=== PATIENT | female | born 1985 | race American Indian/Alaskan Native ===

== ENCOUNTER 2018-02-21 01:19 | Inpatient (IN) | payer OTHER ==
[~2018-02-21] VITALS: Ht 157.5 cm; Wt 62.0 kg
--- OUTSIDE RECORDS SUMMARY | ~2018-02-21 | XMS ---
Demographics + + + | Address | [address] | | | [place] [address] | + + + | Preferred Language | Unknown | + + + | Marital Status | Unknown | + + + | Episcopal Affiliation | Unknown | + + + | Race | Unknown | + + + | Ethnic Group | Unknown | + + + Author + + + | Author | [facility] | + + + | Organization | [facility] | + + + | Address | [address] | | | [place] [address] | + + + | Phone | | + + + Care Team Providers + + + + | Care Motor Equipment Lieutenant Name | Role | Phone | + + + + Unavailable | Unavailable | + + + + PROBLEMS Unknown Problems ALLERGIES + + + + +---------+ | Substance | Reaction | Event Type | Date | Status | + + + + +---------+ | Jim | Unknown | Non Drug | Nov, | Unknown | | | | Allergy | | | + + + + +---------+ SOCIAL HISTORY No smoking Hx information available PLAN OF CARE + +---------+ | Activity | Details | + +---------+ +---+ | | +---+ + + + | Follow Up | prn Reason:null | + + + VITAL SIGNS + + + + | Height | 62.25 in | 2016-11-27 | + + + + | Weight | 100.9 lbs | 2016-11-27 | + + + + | BMI | 18.30 kg/m2 | 2016-11-27 | + + + + | Temperature | 98.5 degrees Fahrenheit | 2016-11-27 | + + + + | Heart Rate | 92 /min | 2016-11-27 | + + + + | Blood pressure systolic | 125 mm Hg | 2016-11-27 | + + + + | Blood pressure diastolic | 88 mm Hg | 2016-11-27 | + + + + MEDICATIONS + + + + + + + +--------+ | Medicati | Instruct | Dosage | Frequenc | Start | End Date | Duration | Status | | on | ions | | y | Date | | | | + + + + + + + +--------+ | Benadryl | | | | | | | Active | + + + + + + + +--------+ | Hydrocor | External | 1 | 12h | 12 Paulino, | 17 Paulino, | 5 days | Active | | tisone | ly Twice | applicat | | 2016 | 2016 | | | | 2.5 % | a day | ion to | | | | | | | | | affected | | | | | | | | | area | | | | | | + + + + + + + +--------+ | Doxepin | Orally | 1-2 | 24h | 12 Paulino, | | | Active | | HCl 25 | Once a | capsule | | 2016 | | | | | MG | day | at | | | | | | | | | bedtime | | | | | | | | | as | | | | | | | | | needed | | | | | | | | | for | | | | | | | | | itching | | | | | | + + + + + + + +--------+ RESULTS No Results PROCEDURES + + + + + | Procedure | Date Ordered | Related Diagnosis | Body Site | + + + + + | Est Level III | November 27, 2016 | | | | Intermediate | | | | + + + + + | INJ KETOROLAC | November 27, 2016 | | | | TROMETHAMINE 15 MG | | | | + + + + + | INJECTION | November 27, 2016 | | | | INTRAMUSCULAR OR | | | | | SUBCUTANEOUS | | | | + + + + + IMMUNIZATIONS + + + + + | Vaccine | Route | Administration Date | Status | + + + + + | Ketorolac 30mg | IM Intramuscular | November 27, 2016 | Administered | + + + + +"
--- OUTSIDE RECORDS SUMMARY | ~2018-02-21 | XMS | Clinical Summary ---
Demographics + + + | Address | [address] [place] [address] | | | [place] [address] | + + + | Home Phone | | + + + | Preferred Language | Unknown | + + + | Marital Status | Single | + + + | Yarsanism Affiliation | Unknown | + + + | Race | Unknown | + + + | Ethnic Group | Unknown | + + + Author + + + | Author | [facility] | | | and [place] | + + + | Organization | [facility] | | | and [place] | + + + | Address | Unknown | + + + | Phone | Unavailable | + + + Support + + + + + | Name | Relationship | Address | Phone | + + + + + | Katlyn Chris | ECON | [place] | | | | | [address] | | + + + + + Care Team Providers + +------+ + | Care Paperboard Box Maker Name | Role | Phone | + +------+ + | No, Physician | PP | Unavailable | + +------+ + Allergies No Known Allergies Current Medications + + +-------+---------+------+------+-------+ | Prescription | Sig. | Disp. | Refills | Star | End | Statu | | | | | | t | Date | s | | | | | | Date | | | + + +-------+---------+------+------+-------+ | 27-0.8 mg | Take 1 tablet by | | | | | Activ | | multivitamin tablet | mouth Daily. | | | | | e | + + +-------+---------+------+------+-------+ Active Problems Not on file Immunizations + + + + | Name | Dates Previously Given | Next Due | + + + + | INFLUENZA PF | 06/08/2016 | | | QUAD(PED/ADOL/ADULT) | | | | ,PSKT or VIAL | | | + + + + | TDAP, (ADOL/ADULT) | 06/08/2016 | | + + + + Social History + +-------+ +--------+ + | Tobacco Use | Types | Packs/Day | Years | Date | | | | | Used | | + +-------+ +--------+ + | Current Every Day | | | | Started: 07/08/1996 | | Smoker | | | | | + +-------+ +--------+ + + +---+---+---+ | Smokeless Tobacco: | | | | | Never Used | | | | + +---+---+---+ + + +---------+ + | Alcohol Use | Drinks/We | oz/Week | Comments | | | ek | | | + + +---------+ + | No | | | | + + +---------+ + + + + | Sex Assigned at | Date Recorded | | | | + + + | Not on file | | + + + Last Filed Vital Signs + + + + | Vital Sign | Reading | Time Taken | + + + + | Blood Pressure | 141/87 | 06/08/20161614 PST | + + + + | Pulse | 69 | 06/08/20161614 PST | + + + + | Temperature | 37 C (98.6 F) | 06/08/20161614 PST | + + + + | Respiratory Rate | 16 | 06/08/20161614 PST | + + + + | Oxygen Saturation | 96% | 06/08/2016399 PST | + + + + | Inhaled Oxygen | - | - | | Concentration | | | + + + + | Weight | 62.6 kg (138 lb) | 06/07/20161326 PST | + + + + | Height | 157.5 cm (5' 2") | 06/07/20161326 PST | + + + + | Body Mass Index | 25.24 | 06/07/20161326 PST | + + + + Plan of Treatment + + + + + | Health Maintenance | Due Date | Last Done | Comments | + + + + + | Cervical Cancer | | | | | Screening (Pap) | 3 | | | + + + + + | Vaccine: Influenza | | 06/08/2016 | | | (#1) | 8 | | | + + + + + | Vaccine: | | 06/08/2016 | | | Dtap/Tdap/Td (2 - | 6 | | | | Td) | | | | + + + + + Results Not on filefrom Last 3 Months Insurance + +--------+ +--------+ +---------+ | Payer | Benefi | Subscriber | Type | Phone | Address | | | t Plan | ID | | | | | | / | | | | | | | Group | | | | | + +--------+ +--------+ +---------+ | [employer] | [employer] | [id number] | Medica | [phone] | | MEDICAID HMO | HEALTH | | id | 9821 | | | | [place] | | | | | | | [place] | | | | | + +--------+ +--------+ +---------+ + +--------+ +--------+ + + | Guarantor Name | Accoun | Relation to | Date | Phone | Billing Address | | | t Type | Patient | of | | | | | | | | | | + +--------+ +--------+ + + | ELISEO NELSON | Person | Self [birth year] | Home: | [id number] | | [place] | [place] | | 1984 | [phone] [place] | | | stephanie | | | [phone] | + +--------+ +--------+ + +
[~2018-02-21 01:19] MED LIST: BACTRIM DS TAB1 EACH PO; BENTYL10 MG PO; ZOFRAN4 MG PO
== END 2018-02-22 13:29 | disposition home or self-care (01) | DRG 775 ==
LOC: FBCO 01:19 → FBC 01:57
PROVIDERS: ADMIT Obstetrics & Gynecology
PROC: 10E0XZZ Delivery of Products of Conception, External Approach (ICD-10-PCS; principal; 2018-02-21)
PROC: 10907ZC Drainage of Amniotic Fluid, Therapeutic from Products of Conception, Via Natural or Artificial Opening (ICD-10-PCS; 2018-02-21)
DX: O62.3 Precipitate labor (principal); O99.324 Drug use complicating childbirth; O76 Abnormality in fetal heart rate and rhythm complicating labor and delivery; F12.10 Cannabis abuse, uncomplicated; O99.334 Smoking (tobacco) complicating childbirth; F17.210 Nicotine dependence, cigarettes, uncomplicated; Z37.0 Single live birth; Z3A.37 37 weeks gestation of pregnancy
CPT/HCPCS: 85027; 99406; J2590; J7120

== ENCOUNTER 2023-03-05 21:00 | Emergency (ER) | payer OTHER ==
[~2023-03-05] VITALS: Ht 157.5 cm; Wt 45.8 kg
--- OUTSIDE RECORDS SUMMARY | 2023-03-05 21:09 | XMS ---
PreManage Notification: MAE NELSON Security Postpartum Nurse Events No recent Security Events currently on file CRITERIA MET - [facility] - 2 Visits in 30 Days CARE PROVIDERS [facility] or Welfare 12/19/2021-Current HEALTH PHONE: [phone] XANDER PALAFOX [employer] Supervisor Current [facility] PHONE: Unknown Devang has no Care Guidelines for this patient. EBee VISIT COUNT (12 MO.) Vesna Holt [place] [address] [place] [address] TOTAL 2 NOTE: Visits indicate total known visits. ED/UCC VISIT TRACKING (12 MO.) 03/05/2023 21:01 [facility] [place] TYPE: Emergency COMPLAINT: - LIGHTHEADED 03/04/2023 19:53 Vesna A[facility] TYPE: Emergency COMPLAINT: - Vaginal bleed_VAGINAL BLEED INPATIENT VISIT TRACKING (12 MO.) No inpatient visits to display in this time frame [email or web address]
[2023-03-05 21:32] LABS: BASOPHILS 0.6 % (0-2); EOSINOPHILS 0.5 % (0-6); HEMATOCRIT 37.7 % (35.0-50.0); HEMOGLOBIN 12.3 g/dL (12.0-18.0); LYMPHOCYTES 22.7 % (24-44); MCH 28.1 (27-36); MCHC 32.7 g/dl (30-36); MCV 86.1 fl (81-99); MONOCYTES 4.4 % (0-12); NEUTROPHILS 71.8 % (39-80); PLATELET COUNT 335 K/uL (140-440); RBC 4.38 M/ul (4.3-5.7)
[2023-03-05 21:47] LABS: ALBUMIN 3.7 g/dL (3.4-5.0); ALBUMIN/GLOBULIN RATIO 1.19 (1.1-2.4); ANION GAP 15.4 (7-21); BILIRUBIN, TOTAL 0.3 ng/dL (0.2-1.0); BUN/CREATININE RATIO 10.63 (6.0-28.6); CALCIUM 8.5 mg/dL (8.5-10.1); CREATININE, SERUM 0.94 mg/dL (0.55-1.02); POTASSIUM 3.4 mmol/L (3.5-5.1); PROTEIN, TOTAL 6.8 g/dL (6.4-8.2)
[2023-03-05 22:05] LABS: ABO O; ANTIBODY SCREEN NEGATIVE; RH POSITIVE
[2023-03-05 23:07] LABS: BILIRUBIN, URINE NEGATIVE (negative); BLOOD/HGB, URINE MODERATE (Negative); KETONE, URINE NEGATIVE (Negative); LEUK ESTERASE, URINE NEGATIVE (negative); NITRITE, URINE NEGATIVE (negative); PH, URINE 5.5 (5-7)
[2023-03-05 23:12] LABS: EPITHELIAL CELLS, URINE SQUAMOUS 1+ /lpf (0-1+)
[2023-03-05 23:13] LABS: BACTERIA, URINE RARE /hpf (negative); CASTS, URINE NONE SEEN \\lpf; CRYSTALS, URINE NONE SEEN (0-1+); REFLEX CULTURE, URINE No (No)
[2023-03-05 23:14] VITALS: BP 105/59
== END 2023-03-05 23:13 | disposition home or self-care (01) ==
LOC: ED 21:00
PROVIDERS: Emergency Medicine
DX: O03.9 Complete or unspecified spontaneous abortion without complication (principal); F17.200 Nicotine dependence, unspecified, uncomplicated; Z79.899 Other long term (current) drug therapy
CPT/HCPCS: 36415; 76801; 76817; 80053; 81001; 84702; 85025; 86850; 86900; 86901; 99284-25